=== PATIENT | female | born 1995 | race Hispanic/Latino ===

== ENCOUNTER 2017-05-01 00:50 | Emergency (ER) | payer OTHER ==
--- NOTE | 2017-05-01 00:57 | ED PDOC ---
HPI: Psych/Substance Abuse Time Seen by Provider: 05/01/17 00:57 Chief Complaint (Provider): etoh History Per: Patient, EMS Additional Complaint(s): 22 year old presents to ED acutely intoxicated. Mother is with patient at bedside and she thinks patient drank alcohol but did not eat much today. Patient has been vomiting for the past hour and cannot stand up straight. No associated drug use. Past Medical History Reviewed: Historical Data, Nursing Documentation, Vital Signs - Medical History PMH: No Chronic Diseases - Family History Family History: States: No Known Family Hx - Living Arrangements Living Arrangements: With Family - Social History Current smoker - smoking cessation education provided: No Alcohol: Social Drugs: Denies - Allergies Allergies/Adverse Reactions: Allergies Allergy/AdvReac Type Severity Reaction Status Date / Time No Known Allergies Allergy Verified 05/01/17 01:18 Review of Systems ROS Statement: Except As Marked, All Systems Reviewed And Found Negative Psych: Positive for: Other (etoh) Physical Exam - Reviewed Nursing Documentation Reviewed: Yes Vital Signs Reviewed: Yes - Physical Exam Appears: Positive for: Well, Non-toxic, No Acute Distress Skin: Negative for: Rash Eye Exam: Positive for: Normal appearance Cardiovascular/Chest: Positive for: Regular Rate, Rhythm Respiratory: Positive for: Normal Breath Sounds. Negative for: Respiratory Distress Neurologic/Psych: Positive for: Other (intoxicated, answers some questions appropriately) - ECG O2 Sat by Pulse Oximetry: 100 Pulse Ox Interpretation: Normal Medical Decision Making Medical Decision Makin22 year old intoxicated female Plan: IVF BAL IV zofran BAL: 234 3:47 am: Patient is more awake and alert. Parents at bedside are comfortable taking her home and assuming responsibility for her given that she is intoxicated. Patient is stable for discharge with parents. Disposition - Clinical Impression Clinical Impression: Alcohol intoxication - Patient ED Disposition Is Patient to be Admitted: No Counseled Patient/Family Regarding: Need For Followup - Disposition Referrals: [facility] [Outside] Disposition: Routine/Home Disposition Time: 03:53 Condition: STABLE Additional Instructions: Follow up as needed with primary care doctor. Instructions: Alcohol Intoxication (ED)
[2017-05-01 01:18] VITALS: BP 110/79; PULSE 96; RESP 16; TEMP 98; O2SAT 100
[2017-05-01] MEDS ORDERED: Sodium Chloride 0.9% 1,000 ML IV STA (01:31)
== END 2017-05-01 04:23 | disposition home or self-care (01) ==
LOC: H.ER 00:50
DX: F10.129 Alcohol abuse with intoxication, unspecified (principal); R11.10 Vomiting, unspecified
CPT/HCPCS: 80320; 96360; 96361; 99281; J2405; J7040